=== PATIENT | male | born 1995 | race African-American/Black ===

== ENCOUNTER 2018-03-16 14:11 | Emergency (ER) | payer SELFPAY ==
[~2018-03-16] VITALS: Ht 180.3 cm; Wt 56.2 kg
[2018-03-16 14:21] VITALS: BP 125/81
== END 2018-03-16 15:07 | disposition home or self-care (01) ==
LOC: ED 14:45
DX: K08.89 Other specified disorders of teeth and supporting structures (principal); Z87.891 Personal history of nicotine dependence
CPT/HCPCS: 99283